=== PATIENT | male | born 1990 | race Hispanic/Latino ===

== ENCOUNTER 2017-10-16 12:11 | Emergency (ER) | payer OTHER ==
[2017-10-16 12:27] VITALS: BP 127/79; PULSE 84; RESP 18; TEMP 98.2; O2SAT 99
--- NOTE | 2017-10-16 13:21 | ED PDOC ---
Lower Extremity Pain/Injury Time Seen by Provider: 10/16/17 12:29 Chief Complaint (Nursing): Lower Extremity Problem/Injury Chief Complaint (Provider): Lower Extremity Problem/Injury History Per: Patient History/Exam Limitations: no limitations Onset/Duration Of Symptoms: Days (x1) Current Symptoms Are (Timing): Still Present Additional Complaint(s): Ronny Vale is a 27 year old male with no past medical history, who is presenting to the ER for evaluation of right calf pain, onset last night s/p playing softball. Patient states that he felt a pull while jumping for a ball and states that he is unable to bear weight on the leg. Pt has appointment with orthopedics for sunday ut states it is difficult for him to walk around. He denies any weakness, numbness, tingling, chest pain, shortness of breath, or cough. Patient offers no other medical complaints at this time. PMD: Doctor, Ankit Past Medical History Reviewed: Historical Data, Nursing Documentation, Vital Signs Vital Signs: Last Vital Signs Temp 98.2 F 10/16/17 12:24 Pulse 84 10/16/17 12:24 Resp 18 10/16/17 12:24 BP 127/79 10/16/17 12:24 Pulse Ox 99 10/16/17 12:24 - Medical History PMH: No Chronic Diseases - Surgical History Surgical History: No Surg Hx - Family History Family History: States: Unknown Family Hx - Living Arrangements Living Arrangements: Other - Social History Current smoker - smoking cessation education provided: No Alcohol: Occasional Drugs: Denies - Immunization History Hx Tetanus Toxoid Vaccination: No - Allergies Allergies/Adverse Reactions: Allergies Allergy/AdvReac Type Severity Reaction Status Date / Time No Known Allergies Allergy Verified 10/16/17 12:23 Review of Systems ROS Statement: Except As Marked, All Systems Reviewed And Found Negative Cardiovascular: Negative for: Chest Pain Respiratory: Negative for: Cough, Shortness of Breath Musculoskeletal: Positive for: Leg Pain (right calf) Neurological: Negative for: Weakness, Numbness, Other (tingling) Physical Exam - Reviewed Nursing Documentation Reviewed: Yes Vital Signs Reviewed: Yes - Physical Exam Appears: Positive for: Well, Non-toxic, No Acute Distress Head Exam: Positive for: ATRAUMATIC Skin: Positive for: Normal Color Eye Exam: Positive for: Normal appearance ENT: Positive for: Normal ENT Inspection Neck: Positive for: Normal Respiratory: Negative for: Accessory Muscle Use, Respiratory Distress Pulses-Dorsalis Pedis (L): 2+ Pulses-Dorsalis Pedis (R): 2+ Pulses-Post. Tibialis (L): 2+ Pulses-Post. Tibialis (R): 2+ Extremity: Positive for: Normal ROM (full ROM of ankle, knee and hip), Other ( Negative Galvan's test; Achilles palpated bilaterally and is equal and non- tender). Negative for: Tenderness (Achilles), Pedal Edema, Calf Tenderness, Deformity Neurologic/Psych: Positive for: Alert, Oriented. Negative for: Motor/Sensory Deficits - ECG O2 Sat by Pulse Oximetry: 99 (RA) Pulse Ox Interpretation: Normal Medical Decision Making Medical Decision Making: Provider evaluated patient in ED. Patient given crutches and an GIOVANY wrap for comfort Upon provider reevaluation patient is medically stable, and requires no further treatment in the ED at this time. Patient will be discharged home. Counseling was provided and all questions were answered regarding diagnosis and need for follow up with Orthopedics. There is agreement to discharge plan. Return if symptoms persist or worsen. Scribe Attestation: Documented by Sue Villafuerte, acting as a scribe for Layla Villegas PA-C. Provider Scribe Attestation: All medical record entries made by the Scribe were at my direction and personally dictated by me. I have reviewed the chart and agree that the record accurately reflects my personal performance of the history, physical exam, medical decision making, and the department course for this patient. I have also personally directed, reviewed, and agree with the discharge instructions and disposition. Disposition - Clinical Impression Clinical Impression: Muscle strain - Disposition Referrals: Gary Boyce III, MD [Staff Provider] - Disposition Time: 13:16 Condition: STABLE Instructions: Muscle Strain Forms: [facility] (K[place]akh)
== END 2017-10-16 14:05 | disposition home or self-care (01) ==
LOC: H.ER 12:11
DX: S86.819A Strain of other muscle(s) and tendon(s) at lower leg level, unspecified leg, initial encounter (principal); X50.9XXA Other and unspecified overexertion or strenuous movements or postures, initial encounter; Y92.328 Other athletic field as the place of occurrence of the external cause